=== PATIENT | male | born 1935 | race African-American/Black ===

== ENCOUNTER 2019-06-29 17:38 | Inpatient (IN) ==
--- NOTE | 2019-06-29 18:02 | PROVIDER DOCUMENTATION ---
HPI-Male Problem - General Stated Complaint: Hematuria Time Seen by Provider: 06/29/19 17:38 Source: patient, EMS, other ([facility] at bedside) Allergies/Adverse Reactions: Patient Allergies Allergy/AdvReac Type Severity Reaction Status Date / Time No Known Allergies Allergy Verified 06/17/19 10:40 Home Medications: Home Medication List Medication Instructions Recorded Confirmed Last Taken Type Acetaminophen with Codeine 1 tab PO Q8-12H PRN PRN 06/17/19 06/17/19 Unknown History [Acetaminophen-Cod #4 Tablet] Bicalutamide 50 mg PO DAILY 06/17/19 06/17/19 Unknown History Bisoprolol Fumarate 10 mg PO DAILY 06/17/19 06/17/19 Unknown History Captopril 100 mg PO BID 06/17/19 06/17/19 Unknown History Finasteride [Proscar] 5 mg PO DAILY 06/17/19 06/17/19 Unknown History Furosemide [Lasix] 40 mg PO DAILY 06/17/19 06/17/19 Unknown History Nifedipine [Nifedipine ER] 90 mg PO DAILY 06/17/19 06/17/19 Unknown History Tamsulosin [Flomax] 0.4 mg PO BID 06/17/19 06/17/19 Unknown History - History of Present Illness-Male Nature of Presenting Problem: 83 yom presents from [facility] with reports of bleeding from his penis, staff reports a fall this AM. Patient denies any injury reports an episode of this prior. Staff reports one clot. Pt denies complaints. Denies fever, chills, cough, SOB. Location of Complaint: reports: urethral Radiation: reports: none Quality of Pain: reports: none Severity in ED: reports: moderate Onset/Duration: reports: 4-6 hours ago Timing: reports: resolved prior to arrival Context/Activities at Onset: reports: none Urinary Symptoms: reports: hematuria Sexual intercourse history: reports: Not Active Contraception: reports: none Associated Symptoms: reports: other (blood from penis) Similar Symptoms Previously?: No Recently seen or treated by another doctor?: Yes ([facility]) Review of Systems - Adult - REVIEW OF SYSTEMS - ADULT Constitutional: reports: no symptoms reported. denies: see HPI, chills, fever, fatique, night sweats, weight gain, weight loss, other Eyes: reports: no symptoms reported. denies: see HPI, discharge, dry eyes, decreased vision, blurred vision, double vision, eye pain, redness, other Ears, Nose, Mouth & Throat: reports: no symptoms reported. denies: see HPI, ear discharge, ear pain, hearing loss, tinnitus, epistaxis, sinus problem, nose pain, loose teeth, mouth/dental pain, mouth swelling, hoarseness, throat pain, throat swelling, other Cardiovascular: reports: no symptoms reported. denies: see HPI, chest pain, edema, heart murmur, irregular heart rate, orthopnea, palpitations, poor circulation, PND, syncope, other Respiratory: reports: no symptoms reported. denies: see HPI, chronic cough, cough, dyspnea on exertion, excessive sputum production, hemoptysis, pleurisy, shortness of breath, wheezing, other Gastrointestinal: reports: no symptoms reported. denies: see HPI, abdominal pain, hematemesis, constipation, diarrhea, difficulty swallowing, frequent heartburn, nausea, poor appetite, rectal bleeding, vomiting, other Genitourinary: reports: see HPI, hematuria. denies: no symptoms reported, dysuria, discharge, frequency, flank pain, frequent UTI's, hesitency, incontinence, urinary retention, urgency, other Musculoskeletal: reports: no symptoms reported. denies: see HPI, bone pain, back pain, frequent leg cramps, joint pain, joint swelling, muscle aches, muscle weakness, neck pain, other Integumentary: reports: no symptoms reported. denies: see HPI, hives, hair loss, itching, mole changes, nail changes, rash, skin sores/ulcer, skin thickening, other Neurological: reports: no symptoms reported. denies: see HPI, ataxia, dizziness/vertigo, headache/migraines, loss of balance, numbness, paresthesia, seizure, slurred speech, syncope, tremors, other Psychiatric: reports: no symptoms reported. denies: see HPI, anxiety, anti- depressant use, alcohol/drug dependence, depression, emotional problems, insomnia, panic attacks, suicidal thoughts, other Endocrine: reports: no symptoms reported. denies: see HPI, change in skin pigment, excessive sweating, goiter, cold intolerance, heat intolerance, increased hunger, increased thirst, polyuria, other Hematologic/Lymphatic: reports: no symptoms reported. denies: see HPI, blood clots, easy bruising, low blood count, lymphedema, prolonged bleeding, swollen lymph nodes, transfusions, other Allergic/Immunologic: reports: no symptoms reported. denies: see HPI, allergic reactions, allergic rhinitis, asthma, eczema, food allergy, frequent infections, hay fever, hives, positive PPD, urticaria, other Past History - Adult - PAST MEDICAL HISTORY-ADULT Review of Records: reports: Nursing Assessment Review, Social history reviewed & non-contributory. Major Childhood Illnesses: reports: denies history Cardiovascular: reports: HTN Respiratory: reports: denies history Gastrointestinal: reports: denies history Genitourinary: reports: other (enlarged prostate) Musculoskeletal: reports: denies history Neurological: reports: denies history Psychiatric: reports: denies history Endocrine/Immune: reports: denies history Other Conditions: reports: denies history - PRIOR SURGERIES/PROCEDURES Surgical/Procedure History: reports: reviewed, not pertinent - IMMUNIZATION STATUS Childhood Immunizations: See Nurse Assessment Flu Vaccine: See Nurse Assessment - FAMILY HISTORY Family History: reviewed, not pertinent Physical Exam-General - PHYSICAL EXAM-ADULT Initial Vital Signs Reviewed: Yes - CONSTITUTIONAL General Appearance: appears well, alert, no apparent distress - EYES Eyes: PERRL/EOMI, pink conjunctivae - HEAD, EARS, NOSE, MOUTH & THROAT HENMT: normocephalic/atraumatic, moist mucous membranes, normal ENT inspection - NECK Neck: non-tender, full range of motion, supple - RESPIRATORY Respiratory: chest non-tender, lungs clear, normal breath sounds, no pleuratic chest pain, no respiratory distress, no accessory muscle use - CARDIOVASCULAR Cardiovascular: normal peripheral pulses, regular rate, rhythm, no edema, no gallop, no JVD, no murmur - GASTROINTESTINAL (ABDOMEN) Abdominal Exam: normal bowel sounds, non tender, soft, no organomegaly, no pulsatile mass - LYMPHATIC Lymphatic: no adenopathy - MUSCULOSKELETAL Back Exam: normal inspection, no CVA tenderness, no vertebral tenderness Extremity: normal range of motion, non-tender, normal gait, normal inspection, no pedal edema, no calf tenderness Peripheral Pulses: radial (R): 2+, radial (L): 2+ - SKIN Integumentary: normal color, normal turgor, warm/dry - NEUROLOGIC Neurologic: grossly normal - PSYCHIATRIC Psych/Mental Status: normal mood/affect, oriented x 3 Progress - PLAN OF CARE/RESULTS Progress/Plan/Lab Results: Vital Signs - 8 hr 03/18/20 17:50 06/29/19 18:02 06/29/19 19:29 Temperature 98.3 F Pulse Rate 63 65 Respiratory Rate 20 20 Blood Pressure 93/57 100/70 O2 Sat by Pulse Oximetry 95 98 Laboratory Results - last 24 hr 06/29/19 06/29/19 06/29/19 18:40 18:40 18:40 WBC 4.56 L RBC 3.92 L Hgb 12.3 L Hct 37.4 L MCV 95.4 MCH 31.4 H MCHC 32.9 L RDW Std Deviation 13.5 Plt Count 143 MPV 11.2 H Immature Gran % (Auto) 0.2 Neut % (Auto) 34.2 L Lymph % (Auto) 50.2 [place] % (Auto) 10.3 H Eos % (Auto) 4.2 Baso % (Auto) 0.9 H Immature Gran # (Auto) 0.01 Neut # (Auto) 1.56 Lymph # (Auto) 2.29 [place] # (Auto) 0.47 Eos # (Auto) 0.19 Baso # (Auto) 0.04 PT INR PTT (Actin FS) 28.8 Sodium 140 Potassium 4.7 Chloride 103 Carbon Dioxide 25 Anion Gap 12 BUN 31 H Creatinine 1.4 H Estimated GFR/1.73 m2 48 BUN/Creatinine Ratio 22 Glucose 97 Calculated Osmolality 286 Calcium 8.9 Total Bilirubin 0.30 AST 25 ALT 15 Alkaline Phosphatase 42 Total Protein 6.7 Albumin 4.0 Globulin 3.0 Albumin/Globulin Ratio 1.0 Plasma Lactate 06/29/19 06/29/19 18:40 18:45 WBC RBC Hgb Hct MCV MCH MCHC RDW Std Deviation Plt Count MPV Immature Gran % (Auto) Neut % (Auto) Lymph % (Auto) [place] % (Auto) Eos % (Auto) Baso % (Auto) Immature Gran # (Auto) Neut # (Auto) Lymph # (Auto) [place] # (Auto) Eos # (Auto) Baso # (Auto) PT 14.8 INR 1.10 PTT (Actin FS) Sodium Potassium Chloride Carbon Dioxide Anion Gap BUN Creatinine Estimated GFR/1.73 m2 BUN/Creatinine Ratio Glucose Calculated Osmolality Calcium Total Bilirubin AST ALT Alkaline Phosphatase Total Protein Albumin Globulin Albumin/Globulin Ratio Plasma Lactate 1.8 Orders Category Date Time Status NEWS Score 2-4:Order NEWS Lactate Series NOW Care 06/29/19 18:[address] ABDOMEN/PELVIS W/O CONTRAST [CT] Stat Exams 06/29/19 19:26 Completed CBC WITH DIFF [HEME] Stat Lab 06/29/19 18:40 Completed COMPREHENSIVE METABOLIC PANEL [CHEM] Stat Lab 06/29/19 18:40 Completed LACTATE, PLASMA [CHEM] Lab 06/29/19 18:45 Completed PROTIME WITH INR [COAG] Stat Lab 06/29/19 18:40 Completed PTT [COAG] Stat Lab 06/29/19 18:40 Completed UA NIMS W/REFLEX CULT [URINALYSIS] Stat Lab 06/29/19 19:29 Ordered 0.9% Sodium Chloride Inj [Ns] 50 ml Med 06/29/19 21:20 Discontinued .ROUTE As directed 0.9% Sodium Chloride Inj [Ns] 500 ml Med 06/29/19 20:47 Discontinued IV 999 mls/hr CefTRIAXONE [Rocephin] Med 06/29/19 21:20 Discontinued 2 gm .ROUTE .STK-MED ONE CefTRIAXONE [Rocephin] 2 gm Med 06/29/19 20:59 Discontinued 0.9% Sodium Chloride Inj [Ns] 50 ml IV NOW Result Diagrams: 06/29/19 18:40 06/29/19 18:40 - CT/MRI 1 CT Study: Abdomen, Pelvis Impression: See EMR Report (EXAM: CT ABDOMEN/PELVIS W/O CONTRAST INDICATION: hematuria TECHNIQUE: This exam was performed using automated exposure control, adjustment of mA or kV according to patient size, and/or use of iterative reconstruction technique. COMPARISON: None. FINDINGS: There is cardiomegaly. There is mild subsegmental atelectasis at the lung bases. The gallbladder is packed full of stones. No pericholecystic inflammatory changes appreciated. There are couple of tiny cystic appearing lesions associated with the right hepatic lobe. The liver is unremarkable, otherwise. The spleen, pancreas, and adrenal glands are unremarkable. There are a couple of renal cysts bilaterally. There are no renal or ureteral stones and there is no hydronephrosis. There is hyperdense material layering in the urinary bladder posteriorly that probably represents a large blood clot. It measures 6.3 x 4.6 cm axially. The prostate is markedly enlarged. The appendix is normal. There is very mild uncomplicated diverticulosis coli. No focal bowel wall thickening or bowel obstruction is appreciated. The remainder of the GI tract is grossly unremarkable. There is a small umbilical hernia that contains only fat. There are bilateral scrotal hydroceles noted incidentally. There is lumbar spondylosis. There is no evidence of acute osseous abnormality. IMPRESSION: 1.No renal or ureteral stones and no evidence of acute obstructive uropathy. 2.Significant amount of hyperdense material layering in the urinary bladder lumen posteriorly most likely representing a large blood clot. 3.Marked enlargement of the prostate. 4.Other incidental/nonacute findings detailed above. Electronically signed by Denton Cheek 06/29/2019 9:35 PM 06/29/192134 Interpreting Physician: Denton Cheek MD Dictated Date/Time: 06/29/192126 cc: Genna Gama; None,PCP) - CONSULTS/PCP/HOSPITALIST Notification #1 *Consult/PCP/Hospitalist*: Dr. Cardoza Time Discussed: 20:57 Consult Disposition: Admit (D[facility]- admit to hospitalist, Tx UTI,consult urology, CT scan) #2 Consult: Dr. Shaw Time Discussed: 21:46 Consult Disposition: Admit Departure - Departure Date of Disposition Decision: 06/29/19 Time of Disposition Decision: 21:41 DIAGNOSIS: UTI (urinary tract infection), Hematuria, gross Disposition: ADMITTED INPATIENT 09 Certified Medical Emergency: Emergent Condition: Stable Referrals and Follow-Ups: None,PCP [Primary Care Provider] - - Critical Care Note This patient required my direct & personal management of CC.: No Attestation - Physician/ MYKE Attestation Patient care was provided by Advanced Practice Provider:: Yes Advanced Practice Provider:: Genna Gama Advanced Practice Provider documentation review:: The Mid-level provider documentation, treatment plan and medical decision making was reviewed by the physician who agrees with all treatment and medical decision making by the MLP. The physician spent face to face time with patient:: No Advanced Practice Provider documentation review:: Supervising physician onsite and consulted in the evaluation and care of this patient. The physician did not have a face to face encounter with the patient.
[2019-06-29 18:49] LABS: BASO# 0.04 X1000 (0.0-0.2); BASO% 0.9 % (0.0-0.8); EOS# 0.19 X1000 (0.0-0.7); EOS% 4.2 % (0.0-10.0); HEMATOCRIT 37.4 % (42.0-52.0); HEMOGLOBIN 12.3 g/dL (14.0-18.0); IMM GRAN# 0.01 X1000 (0.0-0.04); IMM GRAN% 0.2 % (0.0-0.5); LYMPH# 2.29 X1000 (1.2-3.4); LYMPH% 50.2 % (20.5-51.1); MCH 31.4 PG (27-31); MCHC 32.9 g/dL (33-37); MCV 95.4 FL (81-99); MONO# 0.47 X1000 (0.11-0.59); MONO% 10.3 % (1.7-9.3); MPV 11.2 FL (7.4-10.4); NEUT# 1.56 X1000 (1.4-6.5); NEUT% 34.2 % (42.2-75.2); PLT 143 X1000 (130-400); RBC 3.92 XMIL (4.7-6.1); RDW 13.5 % (11.5-14.5); WBC 4.56 X1000 (4.8-10.8)
[2019-06-29 19:10] LABS: CALCIUM 8.9 mg/dL (8.8-10.2); CREATININE 1.4 mg/dL (0.7-1.2); POTASSIUM 4.7 mmol/L (3.5-5.1); TOTAL BILIRUBIN 0.3 mg/dL (0.20-1.00); TOTAL PROTEIN 6.7 g/dL (6.3-8.3)
[2019-06-29 20:05] LABS: INR 1.1; PROTIME 14.8 Seconds (11.0-16.0)
[2019-06-29] MEDS ORDERED: NS 500 ML IV ONE (20:47)
[2019-06-29] MEDS ORDERED: ROCEPHIN 2 GM in NS 50 ML IV ONE (20:59)
[2019-06-29] MEDS ORDERED: ROCEPHIN ONE (21:20)
[2019-06-29] MEDS ORDERED: NS 50 ML ONE (21:20)
--- NOTE | 2019-06-29 21:38 | Diag Imaging Result Doc PS360 ---
EXAM: CT ABDOMEN/PELVIS W/O CONTRAST INDICATION: hematuria TECHNIQUE: This exam was performed using automated exposure control, adjustment of mA or kV according to patient size, and/or use of iterative reconstruction technique. COMPARISON: None. FINDINGS: There is cardiomegaly. There is mild subsegmental atelectasis at the lung bases. The gallbladder is packed full of stones. No pericholecystic inflammatory changes appreciated. There are couple of tiny cystic appearing lesions associated with the right hepatic lobe. The liver is unremarkable, otherwise. The spleen, pancreas, and adrenal glands are unremarkable. There are a couple of renal cysts bilaterally. There are no renal or ureteral stones and there is no hydronephrosis. There is hyperdense material layering in the urinary bladder posteriorly that probably represents a large blood clot. It measures 6.3 x 4.6 cm axially. The prostate is markedly enlarged. The appendix is normal. There is very mild uncomplicated diverticulosis coli. No focal bowel wall thickening or bowel obstruction is appreciated. The remainder of the GI tract is grossly unremarkable. There is a small umbilical hernia that contains only fat. There are bilateral scrotal hydroceles noted incidentally. There is lumbar spondylosis. There is no evidence of acute osseous abnormality. IMPRESSION: 1.No renal or ureteral stones and no evidence of acute obstructive uropathy. 2.Significant amount of hyperdense material layering in the urinary bladder lumen posteriorly most likely representing a large blood clot. 3.Marked enlargement of the prostate. 4.Other incidental/nonacute findings detailed above. Electronically signed by Denton Cheek 06/29/2019 9:35 PM
[2019-06-29] MEDS ORDERED: ZOFRAN IV PRN (23:34)
--- NOTE | 2019-06-30 00:56 | HISTORY AND PHYSICAL ---
REASON FOR ADMISSION: One-day history of profound hematuria. HISTORY OF PRESENT ILLNESS: Mr. David Herrera is a 89-year-old elderly black man with a past medical history of dementia, hypertension; the daughter insists BPH, who has been at [facility] for the last 2 weeks. During his stay, he had a urinary tract infection which was treated with antibiotics. Today, the patient started complaining of lower abdominal pain, dysuria, and subsequently started passing raymond blood per urethra. He was then transferred to [facility], where they noted that his urine was heavily was heavily hemorrhagic. The patient denies any fever or chills. No GI or complaints. He does admit he has some difficulty straining, however, this has been ongoing. No cardiorespiratory complaints. No lightheadedness. No use of [id number] blood thinners or prescribed blood thinners. No change in home medications. REVIEW OF SYSTEMS: Very limited due to patient's cognitive function. Most of the history is obtained from his daughter who is at bedside. ALLERGIES: Unknown. HOME MEDICATIONS: Have not been officially reconciled. Listed as captopril, Ziac, furosemide, Proscar, nifedipine, Flomax, Tylenol #4, bicalutamide. FAMILY HISTORY: Daughter at bedside says she is not aware of any diabetes, cancer or heart disease in first-degree relatives, but she does not know much about the patient's parents or the patient's siblings. SURGICAL HISTORY: TURP. SOCIAL HISTORY: Does not smoke, drink, or use drugs. Used to live alone up until 2 weeks ago, when he was admitted to [facility] and the daughter is considering fci placement. LABORATORY WORK: CT scan of the abdomen and pelvis showed no stones, no kidney stones in the urinary system, possible large clot in the urinary bladder posteriorly and marked enlargement of the prostate and diverticulosis noted incidentally. White count 4000, hemoglobin and hematocrit 12 and 37, platelets 143,000, normal differential. BUN is 31, creatinine 1.4. PTT is normal. Lactate is normal. PHYSICAL EXAMINATION: VITAL SIGNS: Blood pressure 114/64, heart rate 72, respiratory rate is 16, temperature is 98. GENERAL: An elderly man, not in acute distress, AAO x2. HEENT: Head is normocephalic, atraumatic. Eyes: The patient has bilateral cataracts and arcus senilis. Pupils are reactive to light. Anicteric. Mildly pale. ENT: Grossly unremarkable otherwise. He does have a hanging lower lip. NECK: Supple. No JVD, carotid bruit or thyromegaly. CHEST: Clear when auscultated both lung caldera. CARDIOVASCULAR: 1st and 2nd sounds heard. No gallops, murmurs, rubs. Rhythm is regular. ABDOMEN: Soft with mild lower suprapubic tenderness. No rebound or guarding. Bowel sounds are hypoactive. RECTAL: Deferred at this time. EXTREMITIES: Patient has 2+ edema in lower extremities with wrinkling of the lower half of the skin, which is also mildly hyperpigmented in both lower extremities. Distal pulse volumes are slightly diminished, but otherwise regular, symmetrical. No clubbing or peripheral cyanosis. NEUROLOGICAL: No gross focal deficits. SKIN: See above, otherwise grossly unremarkable. MUSCULOSKELETAL: Grossly unremarkable. ASSESSMENT: 1. Gross hematuria. Bleeding source could be from prostate or could be from bladder. Dr. Cardoza was notified and will see patient later today. Keep patient NPO for possible cystoscopic evaluation. In the meantime, we will type and screen in case patient needs blood. IV fluids will be continued. 2. Benign prostatic hypertrophy. Continue with Flomax, finasteride. [place] catheter placement if the patient has overflow incontinence from this, but will defer to Dr. Cardoza. 3. Hypertension. Continue home medications once reconciled, but hold if systolic blood pressure less than 140. 4. Mild acute kidney injury. Continue with IV fluids. We will hold Lasix and PETER inhibitors for now if the patient is on these medications. 5. Dementia. cc: MD Citlali Sullivan MD Patrick Guthrie, MD
[2019-06-30 01:40] LABS: BASO# 0.05 X1000 (0.0-0.2); BASO% 1.2 % (0.0-0.8); EOS# 0.17 X1000 (0.0-0.7); HEMATOCRIT 36.5 % (42.0-52.0); LYMPH% 44.2 % (20.5-51.1); MCH 31.9 PG (27-31); MCHC 32.9 g/dL (33-37); MCV 97.1 FL (81-99); MONO# 0.46 X1000 (0.11-0.59); MONO% 10.7 % (1.7-9.3); MPV 10.7 FL (7.4-10.4); NEUT# 1.72 X1000 (1.4-6.5); NEUT% 39.9 % (42.2-75.2); PLT 132 X1000 (130-400); RBC 3.76 XMIL (4.7-6.1); RDW 13.8 % (11.5-14.5)
[2019-06-30 01:56] LABS: AGAP 11; BUN 29 mg/dL (8-22); CALCIUM 8.6 mg/dL (8.8-10.2); CHLORIDE 106 mmol/L (98-107); COSMO 282; CREATININE 1.3 mg/dL (0.7-1.2); ESTIMATED GFR > 60; GLUCOSE 108 mg/dL (70-104); POTASSIUM 4.5 mmol/L (3.5-5.1); SODIUM 138 mmol/L (136-145); TCO2 21 mmol/L (25-35)
[2019-06-30] MEDS: NS 1,000 ML IV SCH ×3 (05:04→17:23)
--- NOTE | 2019-06-30 07:13 | CONSULTATION ---
DATE OF CONSULTATION: 06/30/2019 CHIEF COMPLAINT: Gross hematuria. HISTORY OF PRESENT ILLNESS: Mr. Herrera is an 83-year-old, male with history of dementia, hypertension, BPH, prostate cancer who was admitted to [facility] approximately 2 weeks ago due to dementia and altered mental status. He was living prior to this and taking care of all his activities of daily living. He was found to have a positive urine culture with gram-negative rods on 06/27/2019. At that time, it was denied that he had any blood in his urine. However, he began having blood in his urine over the past 24 hours. He was voiding into a toilet, and had a large amount of blood per urethra. He was transitioned to [facility]. He was evaluated and was found to have a urinalysis with a large amount of blood. CT scan was obtained at that time, which showed no evidence of hydronephrosis, and what appeared to be clot present within the bladder. The patient was admitted to [facility] for evaluation. Talking with him, he states he has a long history of BPH, and states he takes several medications. He is currently taking Flomax and Proscar. The patient also takes bicalutamide, but is not sure why he takes it. He has seen Dr. Chavarria in the past. He denies taking any blood thinners, but does take an aspirin per his report. The patient is a slightly poor historian, but denies any prior scrotal or penile surgery. The patient states that he has had some scrotal swelling, and he feels like this is related to his bladder. He says it has been present for a number of years now, and has not gotten any worse. ALLERGIES: No known drug allergies. HOME MEDICATIONS: 1. Captopril. 2. Lasix. 3. Proscar. 4. Nifedipine. 5. Flomax. 6. Tylenol #4. 7. Bicalutamide. PAST SURGICAL HISTORY: 1. Transurethral resection of prostate. 2. Prostate Biopsy PAST MEDICAL HISTORY: 1. BPH. 2. Dementia. 3. Hypertension. 4. Prostate cancer FAMILY HISTORY: Denies family history of malignancy. SOCIAL HISTORY: Denies tobacco, alcohol, or illicit drug use. The patient was living alone until approximately 2 weeks ago, and has been in [facility] since then. REVIEW OF SYSTEMS: Limited by the patient's cognitive status. PHYSICAL EXAMINATION: Vital Signs: Temperature 98.2, heart rate 72, blood pressure 124/68, oxygen saturation 100% on room air. General: No acute distress. Resting comfortably in bed. Alert and oriented x3. Respiratory: Good respiratory effort without audible wheezing or rales. HEENT: Normocephalic, atraumatic. Pupils equal, round, reactive to light. Slightly poor dentition. Neck: Trachea midline. Cardiovascular: Regular rate and rhythm. Abdomen: Soft, nontender, nondistended. : No suprapubic tenderness. No CVA tenderness. Uncircumcised phallus with blood present at the meatus. A large fluid collection within bilateral hemiscrotum, appears to be hydrocele and easily reduced. Bilateral testicles palpated without asymmetry. Digital rectal exam deferred. Neurologic: Gross motor and sensory intact. Slightly cognitively limited; however, the patient is able to carry on conversation and answers most questions appropriately. Skin: No skin lesions or rashes. IMAGING AND LABORATORY DATA: White blood cell count 4.3, hemoglobin 12.0, hematocrit 36.5, platelets 132,000. Sodium 138, potassium 4.5, chloride 106, bicarb 21, BUN 19, creatinine 1.3, glucose 108. CT abdomen and pelvis, images reviewed, which showed normal kidneys bilaterally. No evidence of hydronephrosis or renal cyst. No nephrolithiasis seen. The patient's bladder is slightly distended. Homogeneous area is seen posterior within the bladder. It could be median lobe versus clots. Possible bladder mass could not be completely ruled out. However, it is very symmetrical in the dependent portion of the bladder. The patient's prostate is enlarged. ASSESSMENT AND PLAN: Mr. Herrera is an 83-year-old who presents in evaluation for gross hematuria. The patient states that this started approximately 24 hours ago. Nursing tried to place a catheter overnight; however, they said that they could not get any drainage from the catheter and it would not irrigate. I placed a 22, 3-way catheter this morning with ease, and had return of reddish urine, and irrigated and it remained light red to light pink. No evidence of significant clots, with only a few small clots returned. The catheter seems to drain pretty easily. Will not start continuous irrigation at this time. In talking with him, I recommended cystoscopy with bilateral retrograde pyelograms and possible clot evacuation. Risks, benefits, and alternatives to the surgical procedure were discussed with the patient. Will plan to do this later this morning. Will keep indwelling catheter until then. Will talk with his daughter when she arrives. Will try to get records from Dr. Chavarria's office regarding prior evaluations. Would keep him on finasteride and casodex for the time being. Will continue to monitor. Please call with questions or concerns. cc: Romario Cardoza MD MTDD
[2019-06-30 07:35] LABS: URINE SOURCE CLEAN CATCH
[2019-06-30 07:37] LABS: BILIRUBIN URINE NEGATIVE (NEGATIVE); CLARITY GROSS BLOOD (CLEAR); COLOR RED; GLUCOSE URINE NEGATIVE (NEGATIVE); KETONE URINE NEGATIVE (NEGATIVE)
[2019-06-30 07:38] LABS: BLOOD URINE LARGE (NEGATIVE); LEUKOCYTES URINE TRACE (NEGATIVE); NITRITE URINE NEGATIVE (NEGATIVE); PROTEIN URINE >=300 mg/dL (NEGATIVE); UROBILINOGEN URINE 0.2 EU/dL (0.2-1.0)
[2019-06-30 07:39] LABS: URINE BACTERIA 1+ /HFP; URINE CAST NONE SEEN /LPF; URINE CRYSTAL NONE SEEN /HPF; URINE EPITHELIAL CELLS <10 /HPF (<10); URINE RBC TNTC /HPF (<10); URINE YEAST NONE SEEN /HPF
[2019-06-30 07:40] LABS: URINE SMALL ROUND CELLS RENAL PRESENT
[2019-06-30] MEDS ORDERED: DIPRIVAN 1% ONE (09:53)
[2019-06-30] MEDS ORDERED: AMIDATE ONE (10:34)
[2019-06-30] MEDS ORDERED: DECADRON ONE (11:05)
[2019-06-30] MEDS ORDERED: ZOFRAN ONE (11:05)
[2019-06-30] MEDS ORDERED: KEFZOL 1 GM/D5W 2 GM/100 ML IVPB ONE (11:34)
[2019-06-30] MEDS ORDERED: B & O 16A SUPP ONE (12:25)
--- NOTE | 2019-06-30 12:55 | Diag Imaging Result Doc PS360 ---
EXAM: RETROGRADES 2 OR 3 FILMS 06/30/2019 HISTORY: HEMATURIA TECHNIQUE: Five images, COMMENT: Retrograde pyelography was performed on the left. There are no apparent fixed intraluminal filling defects or obstructing lesions. The upper tracts are normal in appearance as seen. IMPRESSION: No definite abnormality. Electronically signed by Juan Viramontes 06/30/2019 12:53 PM
[2019-06-30] MEDS ORDERED: NEO-SYNEPHRINE ONE (13:09)
[2019-06-30] MEDS ORDERED: SUFENTA ONE ×2 (13:10→14:08)
--- NOTE | 2019-06-30 14:11 | PROGRESS NOTE ---
DATE: 06/30/2019 SUBJECTIVE: The patient reports feeling fine. He is still having some hematuria. OBJECTIVE: Vital signs: Temperature 98 degrees, heart rate 71 respiratory rate 12, blood pressure 112/62, O2 saturation 92% on room air. General: This is an 83-year-old male, lying in bed, in no acute distress. Cardiovascular: S1, S2 heard. No murmurs, gallops, or rubs. Regular rate and rhythm. Respiratory: Clear bilaterally to auscultation. No work of breathing or using accessory muscles. Abdomen: Soft, nontender to palpation. Bowel sounds present. No organomegaly. Extremities: No clubbing, cyanosis, or edema. Peripheral pulses present in both legs. Neurological: The patient alert and oriented x3. Moves 4 extremities. LABORATORY DATA: Reviewed. ASSESSMENT AND PLAN: 1. Gross hematuria. Patient has been evaluated by Dr. Cardoza from Urology and they are going to perform cystoscopy with clot removal. We appreciate Urology's is help. 2. Benign prostatic hypertrophy. Patient has been placed on Flomax 3. Hypertension. Blood pressure is under control. We will continue with the same management. 4. Mild acute kidney injury. We will continue with laboratories and monitoring BMP daily. cc: Renan Alegre MD MTDD
[2019-06-30] MEDS ORDERED: ROBINUL ONE (14:26)
[2019-06-30] MEDS ORDERED: EPHEDRINE ONE (14:54)
[2019-06-30] MEDS: MORPHINE IV PRN ×2 (15:46→23:06)
[2019-06-30] MEDS ORDERED: B & O 15A SUPP PR ONE (16:58)
--- NOTE | 2019-06-30 21:54 | OPERATIVE NOTE ---
PROCEDURE DATE: 06/30/2019 PREOPERATIVE DIAGNOSES: 1. Gross hematuria. 2. Urinary tract infection. 3. Benign prostatic hyperplasia. 4. Prostate cancer. POSTOPERATIVE DIAGNOSES: 1. Gross hematuria. 2. Urinary tract infection. 3. Benign prostatic hyperplasia. 4. Prostate cancer. PROCEDURE PERFORMED: 1. Cystoscopy with clot evacuation. 2. Left retrograde pyelogram. 3. Transurethral resection of prostate. SURGEON: Romario Cardoza MD. PAPER PRODUCTS SUPERVISOR: None. COMPLICATIONS: None. BLOOD LOSS: 100 mL. DRAINS: A 22-Telugu, 3-way catheter. SPECIMENS REMOVED: Bladder clots and prostate chips. ANESTHESIA: LMA. INDICATION FOR PROCEDURE: Mr. Herrera is an 83-year-old who has been seen previously by Dr. Chavarria for BPH and prostate cancer. The patient is currently on bicalutamide, finasteride and Flomax for his lower urinary tract symptoms and prostate cancer. He previously was living alone, however, he has had progressive mental decline over the past several weeks and was admitted to [facility]. Yesterday he had an onset of gross hematuria and was brought to the emergency room for evaluation. Urology was consulted. The patient was evaluated this morning. The patient was having raymond blood from his urethra. I placed a 22-Telugu [address] and evidence of a large amount of blood was seen. This was irrigated out and continued to be bloody. In talking with the patient and his daughter, I recommended cystoscopy and clot evacuation and fulguration of bleeding. Discussed risks including worsening bleeding, infection, need for secondary procedures, damage to surrounding structures, inability to stop bleeding. After a thorough discussion, they elected to proceed. FINDINGS: The patient had a normal urethra. No stricture disease or papillary lesions. On entry into the prostate, the patient's prostate was enlarged, measuring approximately 60 g. There was prior TURP defect with a large amount obstructing tissue with some bleeding present overlying the entirety of the exposed prostatic tissue, most prominent at the bladder neck. Inside the bladder there were several clots. These were evacuated out. Both ureteral orifices were visualized. Retrograde pyelogram was performed. Due to evidence of bleeding at the bladder neck, the decision was made to perform a repeat transurethral resection of prostate to help with cauterization. This was systematically resected. The patient had a large prostate. We tried to resect down to the capsule uniformly; however, patient continued to have prostate tissue present at the end of resection. The patient's irrigation was turned off with no active bleeding seen. All chips were extracted and a 22-Telugu 3 way catheter was inserted and he was started on continuous bladder irrigation. DESCRIPTION OF PROCEDURE: After informed consent was obtained, the patient brought to the operative and placed on the table in a supine position. The patient received preoperative antibiotics on the floor and received a dose of Ancef in the operating room. He underwent LMA placement and was placed into a dorsal supine position. He was prepped and draped in usual sterile fashion. A preoperative time-out was then performed with all parties in agreement, including anesthesia, surgical, and nursing staff. At which point, I inserted a 21-Telugu cystourethroscope through the urethra into the bladder. The patient had a normal urethra, no stricture disease or papillary lesions. Once inside of the prostate, the patient's prostate was quite large with evidence of prostatic regrowth and obstructing tissues. There was a moderate- sized median lobe and a large obstructing right lateral lobe. Once inside the bladder, the clots were seen. These were evacuated out with our cystoscope had and ultimately exchanged our cystoscope for a resectoscope element, which passed easily with internal obturator and this allowed for adequate drainage through the resectoscope. Once all the clots were removed, the entirety of the bladder was visualized and no obvious masses or tumors seen. Both ureteral orifices were visualized at the base. At which point, we began trying to cauterize the bladder neck. This area continued to bleed. The decision was made to try to resect this area and perform repeat transurethral resection of prostate to see if we could help his bleeding. Starting at the bladder neck, this was carried down to the verumontanum posteriorly and then carried toward the left lateral lobe starting at 6 o'clock position and moving counter-clockwise. We resected all way to the verumontanum. Similar, resection was undertaken of the right lateral lobe. The patient had a large prostate and large volume was removed. The patient continues to have some prostatic tissue present on both lateral lobes. The patient had a prominent right lateral lobe, which was resected down until it approached the capsule. No significant bleeding was actually seen from the prostate tissue during the cauterization and cutting. However, in the posterior portion of the prostate, the patient's posterior portion of the prostatic urethra there was some bleeding which was cauterized near the verumontanum. All chips were passed into the bladder and then retrieved using the Ellik and flushed through the resectoscope element itself. Once all these were removed a repeat cauterization was seen of the prostatic fossa. Irrigation was turned off and no significant bleeding was seen. At which point, the resected element was removed and the cystourethroscope was reinserted and left retrograde pyelogram performed, which showed normal drainage. No evidence of any obstruction of the left side. Good drainage from the left collecting system with minimal retained contrast. Attention was placed to the right ureter. The right ureteral orifice was quite narrow. It was difficult to cannulate even with a wire. The decision was made to abort the procedure. The patient had no active bleeding seen from either ureteral orifice. The patient had been under anesthesia for over 2 hours at this point. The cystoscope was removed and the resectoscope was reinserted and cauterization again was performed with no active bleeding with irrigation turned off. The patient's bladder was left full and a 22- Telugu [address] way catheter inserted through the urethra into the bladder. The patient's bladder irrigation started slowly and was hand irrigated with no return of clots. The output was light pink. The patient's catheter was inflated with 40 mL of water and placed on slight traction. The patient was then awoken and was taken to recovery in stable condition. DISPOSITION: The patient will be transferred back to the floor for monitoring. He will continue on continuous bladder irrigation. We will continue to monitor. cc: Romario Cardoza MD [facility]PITALCal[facility]
[2019-06-30] MEDS: ROCEPHIN 1 GM in NS 50 ML IV SCH (23:05)
[2019-07-01] MEDS: MORPHINE IV PRN (04:26)
[2019-07-01 07:07] LABS: BASO# 0.03 X1000 (0.0-0.2); BASO% 0.4 % (0.0-0.8); EOS# 0.19 X1000 (0.0-0.7); EOS% 2.7 % (0.0-10.0); HEMATOCRIT 32.6 % (42.0-52.0); HEMOGLOBIN 10.4 g/dL (14.0-18.0); LYMPH# 1.91 X1000 (1.2-3.4); LYMPH% 27.5 % (20.5-51.1); MCHC 31.9 g/dL (33-37); MONO# 1.07 X1000 (0.11-0.59); MONO% 15.4 % (1.7-9.3); MPV 11.5 FL (7.4-10.4); NEUT# 3.75 X1000 (1.4-6.5); PLT 116 X1000 (130-400); RBC 3.36 XMIL (4.7-6.1); RDW 13.6 % (11.5-14.5); WBC 6.95 X1000 (4.8-10.8)
--- NOTE | 2019-07-01 07:14 | PROGRESS NOTE ---
DATE: 07/01/2019 SUBJECTIVE: Postoperative day 1 from cystoscopy, clot evacuation, and transurethral resection of prostate. The patient was kept on continuous irrigation overnight. His urine is slightly better this morning, continues to be red tinged and intermittently will become more red. No evidence of any clots through the catheter. I hand irrigated him this morning and his urine remained clear with no significant clots seen. Seems to be doing well with mentation. Daughter is at bedside, and states he had an overall good night. OBJECTIVE: Vitals: Temperature 99.0 degrees, heart rate 76, blood pressure 127/73, oxygenation 100% on 2 L nasal cannula. General: No acute distress. Resting comfortably in bed. Alert and oriented x3. Respiratory: Good respiratory effort, without audible wheezing or rales. Abdomen: Soft, nontender, nondistended. Genitourinary: No suprapubic tenderness. No CVA tenderness. Urethral catheter in place draining light pink urine on a slow to moderate drip of CBI. Extremities: Lower extremities with no evidence of lower extremity edema. LABS: His a.m. labs have not returned yet. ASSESSMENT AND PLAN: The patient is an 83-year-old, with history of dementia, hypertension, BPH and low-grade prostate cancer, who is followed by Dr. Chavarria. The patient presented with gross hematuria and was taken to the operating room yesterday for cystoscopy, clot evacuation, and retrograde pyelograms, transurethral resection of prostate. The patient had a small amount of clot in his bladder and was bleeding from the bladder neck. This was cauterized and underwent a channel transurethral resection of the prostate. The patient continues to have some bloody urine, but much improved overnight, was on a slow to medium drip this morning of CBI. I think we should continue him on continuous bladder irrigation, and hand irrigate as needed. We will start back his prostate medications as this may be leading to some of the bleeding. The patient had a positive urine culture from 06/26 and has been on culture- specific antibiotics. I think between having UTI and being off his prostate medications may be worsening the bleeding. We will start this back today. If it does well would plan to remove his catheter tomorrow. Continue to monitor from the primary team. We will follow up a.m. labs. The patient probably has lost a fair bit of blood through his urine, may need blood transfusion if blood counts downtrend. We will continue to monitor. Please call with questions or concerns. cc: Romario Cardoza MD MTDCalvin
[2019-07-01 07:24] LABS: AGAP 6; ALBUMIN 2.8 g/dL (3.5-5.0); BUN 16 mg/dL (8-22); CALCIUM 8.3 mg/dL (8.8-10.2); CHLORIDE 109 mmol/L (98-107); COSMO 280; CREATININE 0.9 mg/dL (0.7-1.2); ESTIMATED GFR > 60; GLUCOSE 91 mg/dL (70-104); PHOSPHORUS 3.3 mg/dL (2.7-4.5); POTASSIUM 4.7 mmol/L (3.5-5.1); SODIUM 140 mmol/L (136-145); TCO2 25 mmol/L (25-35)
[2019-07-01] MEDS: TYLENOL PO PRN (09:38)
[2019-07-01] MEDS: CASODEX PO SCH (09:38)
[2019-07-01] MEDS: PROSCAR PO SCH (09:38)
[2019-07-01] MEDS: FLOMAX PO SCH ×2 (09:38→20:34)
--- NOTE | 2019-07-01 10:28 | PROGRESS NOTE ---
DATE: 07/01/2019 SUBJECTIVE: Patient is sleepy. Family who is at bedside, daughter, reports that he is sometimes restless. He is confused, not able to call for pain medications. OBJECTIVE: Vital Signs: Temperature 99.0, heart rate 76, respiratory rate 16, blood pressure 127/73, O2 saturation 100% on room air. General examination: This is a chronically ill- looking, 83-year-old male, lying in bed in no acute distress. Cardiovascular exam: S1, S2 heard. No murmurs, gallops, or rubs. Regular rate and rhythm. Respiratory exam: Clear bilaterally to auscultation. No work of breathing or using accessory muscles. Abdomen: Soft, nontender to palpation. Bowel sounds present. No organomegaly. Extremities: No clubbing, cyanosis, or edema. Peripheral pulses present in both legs. Neurological exam: Patient is sleepy. Moves 4 extremities spontaneously. LABORATORY DATA: Reviewed. ASSESSMENT AND PLAN: 1. Gross hematuria, status post cystoscopy, clot evacuation and transurethral resection of the prostate. Dr. Cardoza from Urology taking care of this patient, but now he is on continuous bladder irrigation. There are still some clots and the urine is bloody. So, at this point, we will continue with the same management. Following leads from Urology. 2. Urinary tract infection. Patient is on ceftriaxone. The urine culture is still pending. Will tailor antibiotics according to the results of that exam. 3. Anemia of blood loss. Hemoglobin is 10.4 today. We will continue to monitor complete blood count, and we will transfuse if needed. 4. Acute kidney injury. Creatinine at presentation was 1.4; today is 0.9. I think that condition is completely resolved. 5. Hypertension. Blood pressure is under control. We will continue with the same management. 6. Disposition: Following leads from Urology. cc: Renan Alegre MD
[2019-07-01] MEDS: MORPHINE IV SCH ×3 (11:01→20:35)
[2019-07-01] MEDS: ROCEPHIN 1 GM in NS 50 ML IV SCH (20:34)
[2019-07-02] MEDS: MORPHINE IV SCH ×3 (01:22→20:08)
[2019-07-02 07:33] LABS: BASO# 0.05 X1000 (0.0-0.2); BASO% 0.7 % (0.0-0.8); EOS# 0.18 X1000 (0.0-0.7); EOS% 2.5 % (0.0-10.0); HEMATOCRIT 31.7 % (42.0-52.0); HEMOGLOBIN 10.1 g/dL (14.0-18.0); LYMPH# 1.76 X1000 (1.2-3.4); LYMPH% 24.1 % (20.5-51.1); MCHC 31.9 g/dL (33-37); MCV 97.2 FL (81-99); MONO# 0.85 X1000 (0.11-0.59); MONO% 11.7 % (1.7-9.3); MPV 12.1 FL (7.4-10.4); NEUT# 4.45 X1000 (1.4-6.5); PLT 105 X1000 (130-400); RBC 3.26 XMIL (4.7-6.1); RDW 13.5 % (11.5-14.5); WBC 7.29 X1000 (4.8-10.8)
[2019-07-02 07:59] LABS: AGAP 8; BUN 13 mg/dL (8-22); CALCIUM 8.5 mg/dL (8.8-10.2); CHLORIDE 105 mmol/L (98-107); COSMO 278; CREATININE 0.8 mg/dL (0.7-1.2); ESTIMATED GFR > 60; GLUCOSE 108 mg/dL (70-104); PHOSPHORUS 2.6 mg/dL (2.7-4.5); POTASSIUM 4.6 mmol/L (3.5-5.1); SODIUM 139 mmol/L (136-145); TCO2 26 mmol/L (25-35)
--- NOTE | 2019-07-02 10:17 | PROGRESS NOTE ---
DATE: 07/02/2019 SUBJECTIVE: Postoperative day 2 from transurethral resection of prostate with cystoscopy and clot evacuation. Overall, patient seems to be doing better. He is less agitated overnight. Nursing states that there is an issue where there is a large amount of leakage around the catheter, and they inflated the balloon more, and this allows for decreased leakage. No evidence of any fevers or chills. He remains restrained. His CBI has been running and intermittently had been increased due to bloody urine. Every time I have seen him, he had very minimal blood in his urine with no significant clot. He is being irrigated 1 time overnight per nursing with retrieval of just a few small clots. OBJECTIVE: Vital signs: Temperature 98.8 degrees, heart rate 87, blood pressure 130/65, oxygen saturation 100% percent on 2 L nasal cannula. General: No acute distress. Resting comfortably in bed. Intravenous lines in place. Respiratory: Good respiratory effort without audible wheezing or rales. Abdomen: Abdomen soft, nontender, nondistended. No suprapubic tenderness. No CVA tenderness. Urethral catheter in place with irrigation draining on a slow drip with yellow to light pink urine. No evidence of any clots. He was hand irrigated with no clot return. Neurologic: Slightly demented, but answers questions appropriately. LABS: White blood count 7.3, hemoglobin 10.1, hematocrit 31.7, platelets 105. Sodium 139, potassium 4.6, chloride 105, bicarbonate 26. BUN 13, creatinine 0.8, glucose 108. ASSESSMENT AND PLAN: Mr. Herrera is an 83-year-old with dementia, hypertension, benign prostatic hyperplasia and low-grade prostate cancer followed by Dr. Chavarria . The patient presented with gross hematuria and was taken to the operating room on for cystoscopy, clot evacuation, retrograde pyelogram, and transurethral resection of prostate. The patient had a small amount of clot in his bladder at that time with significant bleeding from the bladder neck. This area was cauterized and underwent a transurethral resection of prostate. The patient had some bloody output yesterday per nursing. The patient was evaluated multiple times and never had significant bleeding. No evidence of any clots. This was hand irrigated by myself. Irrigation was weaned down with minimal bloody output. Ultimately, this has continued to be weaned down today, and ultimately I removed his catheter this morning. We will plan for a voiding trial today. We will plan for PVR's postvoid. The patient had his restraints removed this morning. Can either pee into a urinal or pee into a diaper. Would record urinary output and do PVR's to ensure adequate emptying. Hemoglobin and hematocrit seems to be relatively stable. Creatinine is low at 0.8; was 1.4 on admission. We will follow up and see postvoid residuals. Continue on bladder medications with Proscar, Casodex and Flomax. If there is low PVRs, could consider weaning off his home medications. We will continue to monitor from a urologic standpoint. Please call with questions or concerns. cc: Romario Cardoza MD MTDD
[2019-07-02] MEDS: CASODEX PO SCH (11:21)
[2019-07-02] MEDS: FLOMAX PO SCH ×2 (11:21→22:00)
[2019-07-02] MEDS: PROSCAR PO SCH (11:21)
--- NOTE | 2019-07-02 13:03 | PROGRESS NOTE ---
DATE: 07/02/2019 SUBJECTIVE: This morning Mr. Herrera refers to be doing well. Denies any new complaints. He said there is a draining system that was discontinued this morning by Urology. Still has some mild blood in his [place]. OBJECTIVE: Vital signs: Blood pressure is 116/65, pulse of 93, respiration is 20, temperature is 98.6 degrees. General: Mr. Herrera is an 83-year-old gentleman. He is in bed in no distress. HEENT: Mucosa is pink and moist. Anicteric. Acyanotic. Neck: Supple. Chest: Clear to auscultation. There were no crepitations, no rhonchi. Cardiovascular: Regular rate and rhythm. No murmurs, no rubs, no gallops. GI/Abdomen: Soft, nontender. Bowel sounds present. No hepatosplenomegaly. : Unremarkable. However, there is mild bleeding from the tip of the penis from the urethra. SCIENCE MANAGER: Patient is awake, alert. Follows basic commands. LABORATORY DATA: WBC is 7.29, hemoglobin is 10.1, platelet count of 105. Chemistry is also reviewed, is completely unremarkable. The phosphorus is slightly low. The patient's urine culture from the 16th was positive for E coli which is sensitive to the current antimicrobial coverage. ASSESSMENT: 1. Gross hematuria on presentation. The patient is status post cystoscopy, clot evacuation, and transurethral resection of the prostate. The patient underwent bladder irrigation therapy. The system has been discontinued this morning. We will continue to monitor and follow further recommendations from Urology. 2. Escherichia coli urinary tract infection. Patient continues to be on ceftriaxone. We plan to treat for a total of 7 days. 3. Acute kidney injury secondary to obstructive uropathy, improved. 4. Hypertension, controlled. 5. Normocytic anemia. Hemoglobin and hematocrit is fairly stable. 6. Benign prostatic hyperplasia, status post transurethral resection of the prostate. PLAN: So, in general, I think Mr. Herrera is doing well. He is day 2 post cystoscopy with clot evacuation, retrograde pyelogram, transurethral resection of prostate and cauterization of mild exposed bleeding area of the bladder neck. He seems to be doing a lot better now. We are going to continue with the current antimicrobial coverage for the E coli in the urine, and await further recommendations from Urology. From a medical standpoint, we think Mr. Herrera will be stable for discharge whenever it is okay with Urology. cc: Akhil Gambino MD
[2019-07-02] MEDS: TYLENOL PO PRN (22:00)
[2019-07-02] MEDS: ROCEPHIN 1 GM in NS 50 ML IV SCH (22:00)
[2019-07-03 07:22] LABS: BASO# 0.04 X1000 (0.0-0.2); BASO% 0.6 % (0.0-0.8); EOS# 0.23 X1000 (0.0-0.7); EOS% 3.5 % (0.0-10.0); HEMATOCRIT 26.6 % (42.0-52.0); HEMOGLOBIN 8.6 g/dL (14.0-18.0); LYMPH# 2.25 X1000 (1.2-3.4); LYMPH% 34.2 % (20.5-51.1); MCH 31.2 PG (27-31); MCHC 32.3 g/dL (33-37); MCV 96.4 FL (81-99); MONO# 0.61 X1000 (0.11-0.59); MONO% 9.3 % (1.7-9.3); MPV 11.9 FL (7.4-10.4); NEUT# 3.45 X1000 (1.4-6.5); NEUT% 52.4 % (42.2-75.2); PLT 113 X1000 (130-400); RBC 2.76 XMIL (4.7-6.1); RDW 13.4 % (11.5-14.5); WBC 6.58 X1000 (4.8-10.8)
[2019-07-03 07:50] LABS: AGAP 10; ALBUMIN 3.1 g/dL (3.5-5.0); BUN 11 mg/dL (8-22); CALCIUM 8.4 mg/dL (8.8-10.2); CHLORIDE 105 mmol/L (98-107); COSMO 278; CREATININE 0.9 mg/dL (0.7-1.2); ESTIMATED GFR > 60; GLUCOSE 122 mg/dL (70-104); PHOSPHORUS 2.6 mg/dL (2.7-4.5); POTASSIUM 4.6 mmol/L (3.5-5.1); SODIUM 139 mmol/L (136-145); TCO2 24 mmol/L (25-35)
[2019-07-03] MEDS: CASODEX PO SCH (08:10)
[2019-07-03] MEDS: PROSCAR PO SCH (08:10)
[2019-07-03] MEDS: FLOMAX PO SCH ×2 (08:10→21:51)
[2019-07-03] MEDS ORDERED: SEROQUEL PO ONE (09:43)
--- NOTE | 2019-07-03 09:43 | PROGRESS NOTE ---
DATE: 07/03/2019 SUBJECTIVE: The patient overall is doing well. The patient has been able to void after catheter removed yesterday. Urine is light pink with minimal clot passage since his catheter was removed. I evaluated him yesterday and he had some blood present at that time. However, no blood present in his diaper today. He seems to be more awake and alert. The patient does ask if he can go home today, which is the first time during our evaluations. PHYSICAL EXAMINATION: Vital Signs: Temperature 98.9 degrees, heart rate 86, blood pressure 138/76, oxygen saturation 100% on room air. General: No acute distress. Resting comfortably in the bed. Alert and oriented x3. Respiratory: Good respiratory effort without audible wheezing or rales. Abdomen: Soft, nontender, nondistended. No palpable masses or hepatosplenomegaly. : No suprapubic tenderness. No CVA tenderness. Normal circumcised phallus. Urethra with no evidence of any blood. Depends with no blood present in it. LABS: White blood cell count 6.6, hemoglobin 8.6, hematocrit 26.6, platelets 113,000. Sodium 139, potassium 4.6, chloride 105, bicarb 24, BUN 11, creatinine 0.9, glucose 122. ASSESSMENT/PLAN: Mr. Herrera is an 83-year-old with dementia, prostate cancer, hypertension, and benign prostatic hypertrophy, who has been followed in the hospital due to gross hematuria and urinary tract infection. The patient presented with significant blood per urethra. Was taken the operating room on for cystoscopy, clot evacuation, and transurethral resection of the prostate. The patient continued to have some blood in his urine which cleared on continuous bladder irrigation and his catheter was removed yesterday. The patient has been able to void multiple times with low postvoid residuals, as per nursing. Overall, the patient seems to be improving clinically from a urologic standpoint. Nurses documented an episode of agitation overnight. The patient asked today if he can go home. Discussed the case with his hospitalist, Dr. Gambino, today. From a urologic standpoint, it seems he is emptying his bladder adequately. His bleeding seems to have stabilized. He continues to have some pink to light red urine. Clinically, this seems to be of minimal concern. Hemoglobin and hematocrit did drop today. Uncertain if this is related to fluids or catching up to the blood loss during his initial presentation. The patient has no evidence of tachycardia and blood pressures are normal. If the patient has worsening confusion and agitation, I would leave that up to the hospitalist regarding management. He is reasonable to hold off on transfusion at this time as long as the patient is able to empty his bladder adequately with minimal clot passage. We will continue to monitor from a urologic standpoint. Please call with questions or concerns. cc: Romario Cardoza MD MTDCalvin
--- NOTE | 2019-07-03 10:00 | PROGRESS NOTE ---
DATE: 07/03/2019 SUBJECTIVE: I have seen and examined Mr. Herrera today. Early on, the charge nurse called me and notified me that Mr. Herrera has been acting strange. Of note, Mr. Herrera initially was admitted to [facility] and was brought in to [facility] because of urinary related symptoms (hematuria), has undergone cystoscopy with TURP, and he seems to have been doing pretty well. When I came to evaluate him, he was pleasant. He was in the bed. He was actually resting. Intermittently, he will make attempt to get out of the bed. He did not seem to be violent. OBJECTIVE: Vital signs: Blood pressure is 138/76, pulse of 86, respiration is 18, temperature 98.9 degrees. General: Mr. Herrera is an 83-year-old, elderly gentleman. He is in bed. He is not in any cardiopulmonary distress. HEENT: Mucosa is pink and moist. Anicteric. Acyanotic. Neck: Supple. Chest: Good air entry bilaterally. There was no crepitations. No rhonchi. Cardiovascular: Regular rate and rhythm. Abdomen: Soft. It is minimally distended but nontender. Extremities: No pedal edema. There are chronic changes of stasis dermatopathy. CUT ROLL MACHINE OFFBEARER: Patient is awake, alert. He is oriented to person. He is clearly disoriented to place and to time. He will follow some basic commands. Every now and then, he would make some irrelevant remarks to the conversation. He clearly delusional at this point. ASSESSMENT: 1. Gross hematuria on presentation, resolved. The patient underwent cystoscopy, clot evacuation, and transurethral resection of the prostate. 2. Escherichia coli urinary tract infection. Patient is on ceftriaxone. 3. Acute kidney injury secondary to obstructive uropathy, resolved. 4. Hypertension, controlled. 5. Benign prostatic hypertrophy and also low-grade prostate cancer. Patient is status post transurethral resection of the prostrate. 6. Advanced Alzheimer's with psychosis. It appears that Mr. Herrera was admitted to [place] because of similar behaviors. From his previous medication list, it appears that he was on Abilify and Olanzapine. It looks like he was also given multiple doses of Geodon. We will get 1-on-1 observation. We will also start him on Seroquel and get [place] to evaluate him today. We will use physical restraints as the last results only when extremely needed. I have discussed with the boiling house oiler about the need for us to try nonpharmacological method first and see if that works. That will include 1-on-1 observation and then go from there. cc: Akhil Gambino MD
[2019-07-03] MEDS: TYLENOL PO PRN (17:10)
[2019-07-03] MEDS: ROCEPHIN 1 GM in NS 50 ML IV SCH (21:52)
[2019-07-03] MEDS: SEROQUEL PO SCH (21:52)
[2019-07-03] MEDS: ZYPREXA PO SCH (21:52)
[2019-07-03] MEDS: HALDOL IV PRN (23:35)
[2019-07-04] MEDS: HALDOL IV PRN ×2 (05:01→21:43)
[2019-07-04 07:14] LABS: BASO# 0.05 X1000 (0.0-0.2); BASO% 0.9 % (0.0-0.8); EOS# 0.41 X1000 (0.0-0.7); EOS% 7.8 % (0.0-10.0); HEMATOCRIT 27.3 % (42.0-52.0); HEMOGLOBIN 8.8 g/dL (14.0-18.0); LYMPH# 2.02 X1000 (1.2-3.4); LYMPH% 38.2 % (20.5-51.1); MCH 31.3 PG (27-31); MCHC 32.2 g/dL (33-37); MCV 97.2 FL (81-99); MONO# 0.59 X1000 (0.11-0.59); MONO% 11.2 % (1.7-9.3); MPV 11.3 FL (7.4-10.4); NEUT# 2.22 X1000 (1.4-6.5); NEUT% 41.9 % (42.2-75.2); PLT 150 X1000 (130-400); RBC 2.81 XMIL (4.7-6.1); RDW 13.6 % (11.5-14.5); WBC 5.29 X1000 (4.8-10.8)
[2019-07-04 07:25] LABS: AGAP 8; ALBUMIN 2.7 g/dL (3.5-5.0); BUN 9 mg/dL (8-22); CALCIUM 8.6 mg/dL (8.8-10.2); CHLORIDE 110 mmol/L (98-107); COSMO 285; CREATININE 0.9 mg/dL (0.7-1.2); ESTIMATED GFR > 60; GLUCOSE 85 mg/dL (70-104); PHOSPHORUS 3.3 mg/dL (2.7-4.5); POTASSIUM 4.4 mmol/L (3.5-5.1); SODIUM 144 mmol/L (136-145); TCO2 26 mmol/L (25-35)
[2019-07-04] MEDS: FLOMAX PO SCH ×2 (09:06→21:43)
[2019-07-04] MEDS: PROSCAR PO SCH (09:06)
[2019-07-04] MEDS: CASODEX PO SCH (09:06)
[2019-07-04] MEDS ORDERED: MIRALAX PO SCH (10:15)
[2019-07-04] MEDS ORDERED: ARICEPT PO ONE (12:44)
--- NOTE | 2019-07-04 16:06 | PROGRESS NOTE ---
DATE: 07/04/2019 SUBJECTIVE: I have seen and examined Mr. Herrera today. Mr. Herrera is an 83-year-old male. He is in bed. He refers to be doing okay. I understand he did not sleep very well last night. The daughter was at the bedside at the time of the encounter and that this morning, he was just trying to catch up with his sleep. Denies any new complaints. OBJECTIVE: Vital signs: Blood pressure 128/74, pulse 57, respirations 12, temperature 99.5 degrees. General: Mr. Herrera is an 83-year-old elderly gentleman. He was in bed. He was not in any distress. HEENT: Mucosa is pink and moist. Anicteric. Acyanotic. Neck: Supple. Chest: Good air entry bilaterally. There were no crepitations. No rhonchi. Cardiovascular: Regular rate and rhythm. No murmurs, no rubs, no gallops. Gastrointestinal: Abdomen soft, minimally distended, but nontender. Bowel sounds present. Extremities: No pedal edema. There is some chronic changes of stasis dermatopathy in both legs. [employer]: Patient was sleepy but was easily arousable, was oriented to person but clearly disoriented to place and time. He follows basic commands, but he continues to say things just unrelated to conversation. He is clearly delusional. LABORATORY DATA: Has been reviewed. Patient's hemoglobin is up to 8.8. Other CBC unremarkable. Chemistry is also reviewed and is unremarkable. So far, patient's blood culture has been negative. ASSESSMENT: 1. Gross hematuria on presentation resolved. The patient underwent cystoscopy with clot evacuation and transurethral resection of prostate on 06/30/2019. Today is day 4, postop. He seems to be doing remarkably well. Dr. Cardoza is on board. 2. Escherichia coli urinary tract infection. Mr. Herrera is on ceftriaxone. Today is day 4. Repeat urine culture has been negative. His blood culture is also negative. I think he can safely be switched to cefazolin whenever he is ready to be transferred back to [place]. I will probably treat him for a total of 10 to 14 days. 3. Acute kidney injury secondary to obstructive uropathy, resolved. 4. Hypertension controlled. 5. Symptomatic benign prostatic hypertrophy. Patient is status post transurethral resection of the prostate. 6. Advanced Alzheimer's with psychosis. The patient was actually admitted to [place] for psychotic behaviors and was transferred from there to here. He has been started back on his antipsychotic medicine. He seems to be a little bit calmer today. We are pending a call from [place] to accept him. 7. Anemia of acute blood loss. The patient's hemoglobin is 8.8. It seems to be slightly better than yesterday. He has not needed any transfusion yet. We are going to continue to monitor. 8. 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 We started the patient on low-dose aspirin and statin. 9. Dementia presumably combination of Alzheimer's and vascular. PLAN: In general, Mr. Herrera is an 83-year-old gentleman who has been in the hospital for the past 5 days. I understand was initially admitted to [place] because of psychotic behavior and was transferred to [place] because of hematuria. Subsequently, he was transferred to the [facility] [place] for higher level of care. During his hospital course, he was evaluated by Urology and he underwent a urological procedure which was successful. He was also found to have urinary tract infection and started on antibiotics. Postoperatively, he seems to be fairly stable. He continues to be very delusional, which gets worse especially at night, so I think the patient has delirium with psychotic features on background of severe dementia. I think from a medical standpoint he is stable to be discharged back to [place]. I have called [place] today and have related his clinical picture to them and that from a medical standpoint we think he is stable to be discharged. They are pending to call me back to see when he can be accepted there back. For now, we will continue with the current antimicrobial and his home medicines. cc: Akhil Gambino MD
[2019-07-04 20:00] VITALS: BP 132/68
[2019-07-04] MEDS ORDERED: LIPITOR PO SCH (21:00)
[2019-07-04] MEDS: SEROQUEL PO SCH (21:43)
[2019-07-04] MEDS: ZYPREXA PO SCH (21:43)
[2019-07-04] MEDS: TYLENOL PO PRN (21:43)
--- NOTE | 2019-07-05 06:53 | DISCHARGE SUMMARY ---
ADMISSION DATE: 06/29/2019 DISCHARGE DATE: 07/05/2019 DISPOSITION: [facility]. REASON FOR TRANSFER: To continue with psychiatric inpatient management. CONSULTATION DURING THIS ADMISSION: Urology consult. The patient was seen by Dr. Cardoza. INVASIVE PROCEDURE DONE DURING THIS ADMISSION: 1. Cystoscopy with clot evacuation. 2. Left retrograde pyelogram. 3. Transurethral resection of prostate. All these were done by Dr. Cardoza on 06/30/2019. IMAGING STUDIES OF SIGNIFICANCE: 1. CT scan of the abdomen and pelvis showed no renal or ureteral stones and no evidence of acute obstructive uropathy. 2. Significant amount of hyperdense material layering in the urinary bladder representing large blood clot. 3. Marked enlargement of the prostate. 4. The retrograde pyelogram showed no definite abnormality. ADMISSION DIAGNOSES: 1. Gross hematuria. 2. Benign prostatic hypertrophy. 3. Hypertension. 4. Mild acute kidney injury. DISCHARGE DIAGNOSES: 1. Gross hematuria on admission secondary to bladder neck bleeding. 2. Escherichia coli urinary tract infection. 3. Acute kidney injury on admission, presumably related to obstructive uropathy, resolved. 4. Hypertension. 5. Symptomatic benign prostatic hypertrophy. 6. Advanced Alzheimer's with psychosis. 7. Anemia of acute blood loss. 8. Dementia presumably combination of Alzheimer's and vascular. 9. 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 PRESENTING COMPLAINT: One-day history of profound hematuria. HISTORY OF PRESENT COMPLAINT: Mr. Herrera is an 83-year-old gentleman with history of dementia, hypertension and BPH. Apparently, patient was admitted to [facility] because of some psychotic behaviors. Also while there, he was found to have hematuria, so he was sent to [facility] for evaluation. He was then transferred from [place] to [facility] for higher level of care. HOSPITAL COURSE: Mr. Herrera was admitted to the medical floor, was fluid resuscitated. Cultures were done and he was started on IV antibiotics. Urology was consulted. Patient was seen by Dr. Cardoza. Urological intervention was done. Please refer to the details in the chart. Briefly, a cystoscopy was done and clot was found. Evacuation was done. A left selected pyelogram was also done and a transurethral resection of the prostate was done. Postoperatively Mr. Herrera underwent the bladder irrigation therapy which resolved all the bleeding in the bladder. The irrigation system was disconnected and Mr. Herrera continues to have regular clear urine. During the hospital course he also still had some delusional/psychotic behaviors. He was started back on his medications and [facility] was consulted again and Mr. Herrera was successfully transferred over there for to continue with his psychiatric management. Time spent for discharge is 35 minutes. cc: Akhil Gambino MD
[2019-07-05] MEDS ORDERED: ASPIRIN PO SCH (09:00)
[2019-07-05] MEDS ORDERED: ARICEPT PO SCH (09:00)
== END 2019-07-05 01:00 | DRG 663 ==
LOC: P.ED 17:38 → 3N 22:38 → SUATTDRO 22:38
PROVIDERS: ATTEND Internal Medicine
PROC: UR.TURP (2019-06-30 10:39)